=== PATIENT | male | born 1975 | race Caucasian/White ===

== ENCOUNTER 2018-03-13 11:08 | Emergency (ER) | payer MEDICAID, OTHER ==
[2018-03-13] MEDS ORDERED: NS 1,000 ML IV ONE (11:26)
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
[2018-03-13 11:50] LABS: PLATELET COUNT 413 10^3/uL (150-400)
[2018-03-13] MEDS ORDERED: IOPAMIDOL (ISOVUE-300) 100 ML BTL ONE (13:15)
[2018-03-13 14:48] VITALS: BP 135/78
== END 2018-03-13 14:49 | disposition home or self-care (01) ==
DX: N45.1 Epididymitis (principal); E86.9 Volume depletion, unspecified; F17.200 Nicotine dependence, unspecified, uncomplicated
CPT/HCPCS: Q9967